=== PATIENT | female | born 1975 | race Caucasian/White ===

== ENCOUNTER → 2018-06-19 13:24 | Outpatient (CLI) | payer MEDICAID, SELFPAY ==
--- NOTE | 2018-06-19 13:27 | RAD_ITS ---
STUDY: X-RAY - LEFT SHOULDER REASON FOR EXAM: Female, 42 years old. Pain after playing basketball TECHNIQUE: 4 view(s) of the shoulder. COMPARISON: None. FINDINGS: Normal glenohumeral articulation. Normal acromioclavicular joint. Normal acromion. Normal humeral head and visualized proximal humerus. The soft tissue structures are unremarkable. Normal visualized pulmonary apex. RAD/Shoulder min 2 Views IMPRESSION: Normal x-ray examination of the shoulder. Electronically Signed: Karl Noonan MD at 13:43 EDT , Service support ,
== END ==
PROVIDERS: Visit Provider Physician Assistant Medical
DX: M25.519 Pain in unspecified shoulder (principal)
CPT/HCPCS: 73030

== ENCOUNTER 2019-09-21 12:00 | Outpatient (RCR) | payer MEDICAID, SELFPAY ==
[2019-07-28 09:59] VITALS: BMI 37.5
--- NOTE | 2019-08-27 12:03 | HP.PTEVAL_ITS ---
Patient's Visit Information JOVANA HOBSON is a 43 year old F referred to Physical Therapy by Carleen Matthew DC with a diagnosis of LUMBAR SEGMENTAL/SOMATIC DYSFUNCTION. Date of Evaluation: 08/27/19 Physical Therapist: Neelam Llanos PT, Cert MDT - Visit Plan Frequency: 2-3x /Week Duration: 4-6 Weeks Plan: AQUATIC THERAPY FOR POSTURE CORRECTION/STRENGTHENING, INSTRUCTION IN APPROPRIATE BODY MECHANICS AND ACTIVITY MODIFICATIONS. DLS STARTING WITH A VALENTIN TRAL SPINE PROGRESSING ROM TOLERATED. JEANNINE LE ROM, STRETCHING AND STRENGTHENING. HEP INSTRUCTION. 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 Disability: NO. Present symptoms: JEANNINE LOW BACK PAIN, HIP PAIN AND JEANNINE BUTTOCK PAIN. INTERMITTENT JEANNINE LE PAIN AND NUMBESS IN THIGHS AND LEGS. DOES NOT GO TO ANKLES, FEET OR TOES. Present since: FEBRUARY 2019. Pain Scale: WORST 9/10, LEAST 0/10. Currently: /10. IMPROVING WITH CHIROPRACTOR. Commenced as a result of: NO APPARENT REASON. Symptoms at onset: LOW BACK. Worse: RUNNING, TRYING TO PLAY SOFTBALL, LIFTING, BENDING OVER, PROLONGED SITTING, LONG WALKS. Better: CHIROPRACTOR, REST, FREQUENT CHANGE OF POSITION. Disturbed sleep: YES. Previous history/Previous treatment: ABOUT 20 CHIROPRACTIC VISITS THIS EPISODE. HAS SEEN A CHIROPRACTOR OFF AND ON FOR ABOUT 20 YEARS - SOMETIMES FOR NECK AND SOMETIMES FOR LOW BACK. NO BACK SURGERY. NO LUMBAR DEBBY'S. NO PHYSICAL THERAPY. Coughing/sneezing/straining: NO. Gait: ONLY HURTS IF SHE WALKS A LONG WAY. Difficulty initiating urinatin: NO. Accidents: NO. Unexplained weight loss: NO. Imaging: LUMBAR X-RAYS SHOWING SOME THINING OF THE DISCS OR BONES. NO MRI. PMH: UNREMARKABLE. Recent major surgery: NO. PLOF (Prior Level of Function) - UNLIMITED. - Objective Sitting/Standing Posture: POOR. Lordosis: NORMAL. Lateral shift: NO. Relevant shift: N/A. Active Correction of posture: NE. Other Observations: INDEP GAIT INTO PT WITH NO GROSS DEVIATIONS NOTED. Motor deficit: JEANNINE LE'S 5/5 WITH MMT'ING. Sensory deficit: NO. ROM deficit: NO. Reflexes: 1/2 JEANNINE LE'S. Dural Signs: NEGATIVE JEANNINE LE'S. Lumbar mvmt loss: flex - NIL. ext - MOD TO EMMANUEL. R SG - MIN. L SG - MIN. PATIENT C/O INCREASED LOW BACK PAIN WITH LUMBAR ROM TESTING ALL PLANES BUT ESPECIALLY WITH EXTENSION TESTING. NO LE SX'S REPORTED WITH TESTING. Core strength: POOR. Palpation: NO ACUTE TENDERNESS WITH PALPATION OF THE THORACIC, LUMBAR, SACRAL OR HIP REGIONS. - Goals Goal 1:: DECREASE C/O LOW BACK AND JEANNINE LE SX'S. Goal Time Frame: 4-6 Weeks Goal 2:: IMPROVE PERSONAL CARE, LIFTING, SITTING, SLEEP, SOCIAL LIFE AND HOMEMAKING FUNCTION Goal Time Frame: 4-6 Weeks Goal 3:: INSTRUCT IN PROPHYLAXIS - Rehabilitation Potential Rehabilitation Potential: Fair - Anticipated Interventions Patient/Client Instruction: Educate patient on: Condition, Plan of Care, Risk Factors, Benefits of Fitness Program For the Purpose of:: To improve self management Therapeutic Exercise to Include: Strength training, Body mechanics, Postural training, Flexibilty training, In an aquatic setting, Dynamic Lumbar Stabilization, Scapular Strength/Stabilization For the Purpose of:: To decrease pain, To improve muscle performance and motor function, To increase tolerance to activity/condition/position, To improve ability of physical actions for home/community/work/leisure Thank you for the opportunity to evaluate your patient. For Medicare and Medicare HMO plans, please review the plan of care and approve it. It will need to be FAXED BACK to us at [phone] for Medicare purposes. For Medicare only, by signing this I certify the plan of care. Please let me know if there are questions or concerns regarding this plan of care. Physician Signature: Date:
--- NOTE | 2019-09-21 12:30 | HP.PTDCSUM ---
HP - PT D/C Summary It has been my pleasure to treat JOVANA HOBSON under orders from Carleen Matthew DC, for the diagnosis of LUMBAR SEGMENTAL/SOMATIC DYSFUNCTION for a total of 9 visit(s). Discharge Date: 09/21/19 Please see the following information for a summary of their discharge status. - Subjective Subjective: PATIENT REPORTS THE PAIN SHE WAS HAVING IN HER BACK IS GONE. SHE REPORTS SHE IS NOW SLEEPING GOOD. BACK PAIN IS NO LONGER LIMITING HER STANDING, WALKING AND SITTING. HAS NOT TRIED HEAVY LIFTING. PATIENT REPORTS WATER THERAPY WAS REALLY GOOD AND HELPFUL. DOING HEP. PATIENT REPORTS IT IS A LOT OF TIME AND GAS FOR HER TO COME TO PT AND SHE WANTS TO STOP AT THIS TIME. - Pain Lumbar Spine Pain Intensity (Out of 10): 0 LE's Pain Intensity (Out of 10): 0 L hip Pain Intensity (Out of 10): 0 - Overall Improvement % Improvement: 100 - Objective Objective/Function: ALL GOALS MET. Lumbar mvmt loss: flex - NIL. ext - MIN TO MOD. R SG - MIN. L SG - MIN. PATIENT DENIES LBP WITH LUMBAR ROM TESTING ALL PLANES. Core strength: POOR. Palpation: NO ACUTE TENDERNESS WITH PALPATION OF THE THORACIC, LUMBAR, SACRAL OR HIP REGIONS. JEANNINE LE STRENGTH 5/5 WITH MMT'ING. PATIENT ABLE TO DEMO GOOD POSTURE AND BODY MECHANICS AFTER INSTRUCTION GIVEN. - Goals Goal 1:: DECREASE C/O LOW BACK AND JEANNINE LE SX'S. Goal 2:: IMPROVE PERSONAL CARE, LIFTING, SITTING, SLEEP, SOCIAL LIFE AND HOMEMAKING FUNCTION Goal 3:: INSTRUCT IN PROPHYLAXIS - Plan Plan: D/C TO HEP - D/C Information If there are questions or concerns regarding this patient's physical therapy, please feel free to call me at [phone]. Thank you for the referral of this patient. Sincerely, Neelam Llanos, PT, Cert MDT
== END 2019-09-21 19:00 | disposition home or self-care (01) ==
LOC: PT 12:00
PROVIDERS: Referring Provider Chiropractor; Visit Provider Chiropractor
DX: M99.03 Segmental and somatic dysfunction of lumbar region (principal)
CPT/HCPCS: 97113; 97161; 97530

== ENCOUNTER 2020-08-03 09:30 | Emergency (ER) | payer OTHER, MEDICAID, SELFPAY ==
[2019-07-28 09:59] VITALS: BMI 37.5
[2020-08-03 09:31] VITALS: BP 142/61; PULSE 78; RESP 16; TEMP 36.4; O2SAT 98; BMI 36.6
--- NOTE | 2020-08-03 09:40 | ED.VIS.GEN ---
History of Present Illness Chief Complaint: Lower Extremity Injury Informant: Patient Onset: Today Context: Sudden Onset Timing: Continuous Current Severity: Moderate Maximum Severity: Moderate Narrative: The patient is an otherwise healthy female who presents to the emergency department with left ankle injury. 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 She states that she was coming down the stairs. She thought she was on the last step, but was not. She went to plant on the ground, and suffered inversion injury to her left ankle. She fell to the ground, but did not strike her head. She states she had immediate pain. She was able to bear some weight, but the pain worsened. She denies other injury. She is not taken anything for her pain. Ice did seem to help. Prior similar symptoms: No Recent Illness/Hospitalization: No Past Medical History - Allergies and Home Meds Allergies/Adverse Reactions: Allergies No Known Allergies Allergy (Verified 08/03/20 09:30) [facility] - Prior records reviewed: Yes Past Medical History: None Surgical History: no surgical history Smoking Status: Never smoker Review of Systems General: Denies: Chills, Fever, Sweats Eyes: Denies: Visual changes - bilaterally, Diplopia ENT: Denies: Rhinorrhea, Sore throat Cardiovascular: Denies: Chest pain, Palpitations Respiratory: Denies: Dyspnea, Cough, Dyspnea on exertion Gastrointestinal: Denies: Abdominal pain, Nausea, Vomiting, Diarrhea, Melena, Hematochezia Genitourinary: Denies: Dysuria, Hematuria, Frequency Musculoskeletal: Denies: Back pain, Extremity Pain Skin: Denies: Rash, Wounds Neurological: Denies: Headache, Weakness, Numbness Physical Exam Vital Signs/Narrative: Vital Signs Temp Pulse Resp BP Pulse Ox 08/03/20 09:31 97.5 F L 78 16 142/61 H 98 Inital Vital Signs reviewed: Yes General: Well nourished, Well developed, No Acute Distress Head: Normocephalic, Atraumatic Eyes: Perrl, EOMI ENT: Moist mucous membranes, No rhinorrhea Neck: Supple, Nontender Cardiovascular: Regular rate, Regular rhythm, No murmurs Respiratory: No distress, CTA bilaterally, Chest nontender Abdomen: Soft, Nontender, Nondistended, Normal bowel sounds Back: Nontender, Normal Inspection Extremities: No edema, Tenderness - Tender over left lateral malleolus. Normal pulses. Achilles intact. No pain at the proximal fibula. Skin: Normal color, No rash Neurological: Alert, Oriented x3, Cranial nerves II-XII grossly intact, Normal Strength, Normal Sensation Psychological: Normal affect, Normal Mood Diagnostic/Tx/Re-eval Clinical Impression(s) from Imaging Studies Ankle X-Ray 08/03/20 09:48 IMPRESSION: Lateral soft tissue swelling. Small plantar spur. Electronically Signed: Jaime Miguel Angel, at 10:14 EDT , Service support , Foot X-Ray 08/03/20 09:48 IMPRESSION: Small plantar spur. Electronically Signed: Jaime Michelle, at 10:15 EDT , Service support , - Medical Decision Making Patient presents with left ankle injury after fall. She did not strike her head or lose consciousness. Plain films are obtained. There is no evidence of acute fracture. I do feel that her symptoms are likely secondary to lateral ligamentous sprain. Patient be placed in a boot orthosis and given crutches and analgesics. She will follow-up with [facility] for reevaluation. Impression 1. Left ankle sprain ED Disposition - Plan for ED Patient: Instructions: ED Sprain Ankle W X Ray Prescriptions: Hydrocodone Bitart/Apap 5-325 [[place] 5MG-325MG] 1 tab PO Q6H PRN PRN 3 Days #10 tab PRN Reason: Pain Prescription Printed [facility] [GROUP OF PHYSICIANS] -
--- NOTE | 2020-08-03 09:48 | RAD_ITS ---
STUDY: X-RAY - LEFT FOOT CLINICAL: Female, 44 years old. FELL ON LAST STEP WALKING DOWN STEPS, FELT A SNAP IN LEFT ANKLE. STS TECHNIQUE: 3 view(s) of the foot. COMPARISON: None. FINDINGS: There is a plantar calcaneal spur. Normal visualized subtalar, talonavicular, calcaneocuboid, tarsal and tarsometatarsal articulations. Normal metatarsi. Normal metatarsophalangeal joint of the great toe. Normal tibial and fibular sesamoid bones. Normal interphalangeal joint of the great toe. Normal phalanges of the great toe. Normal second through fifth metatarsophalangeal joints. Normal interphalangeal joints and phalanges of the lesser toes. The soft tissue structures are unremarkable. RAD/Foot min 3 Views IMPRESSION: Small plantar spur. Electronically Signed: Jaime Michelle, at 10:15 EDT , Service support ,
--- NOTE | 2020-08-03 09:48 | RAD_ITS ---
STUDY: X-RAY - LEFT ANKLE REASON FOR EXAM: Female, 44 years old. FELL ON LAST STEP WALKING DOWN STEPS, FELT A SNAP IN LEFT ANKLE. STS TECHNIQUE: 3 view(s) of the ankle. COMPARISON: None. FINDINGS: Normal visualized distal tibia and fibula. Normal medial and lateral malleoli. Normal tibiotalar articulation and ankle mortise. Small plantar spur. The visualized subtalar, talonavicular, calcaneocuboid and tarsal articulations are normal. Lateral soft tissue swelling. RAD/Ankle min 3 Views IMPRESSION: Lateral soft tissue swelling. Small plantar spur. Electronically Signed: Jaime Michelle, at 10:14 EDT , Service support ,
[2020-08-03 11:15] VITALS: RESP 16
== END 2020-08-03 11:15 | disposition home or self-care (01) ==
PROVIDERS: Emergency Provider Emergency Medicine
DX: S93.402A Sprain of unspecified ligament of left ankle, initial encounter (principal); W10.9XXA Fall (on) (from) unspecified stairs and steps, initial encounter
CPT/HCPCS: 73610; 73630; 99284

== ENCOUNTER 2020-09-08 16:30 | Outpatient (RCR) | payer OTHER, MEDICAID, SELFPAY ==
[2020-08-08 09:41] VITALS: BMI 36.6
--- NOTE | 2020-08-12 10:57 | HP.PTEVAL_ITS ---
Patient's Visit Information OJVANA HOBSON is a 44 year old F referred to Physical Therapy by AL Aldana with a diagnosis of Left Ankle Sprain. Date of Evaluation: 08/12/20 Physical Therapist: Svetlana Bone DPT - Visit Plan Frequency: 3x /Week Duration: 4 Weeks Plan: Focus on LE strength, proprioception and functional mobility- Modality of Vaso and E-stim - Subjective Coming down the stairs at work and missed the bottom step and fell- went to ER- had x-rays which were negative- referred to [facility]- she saw them on Saturday- he took her off crutches and told her to stay in the boot. Patient reports that its improving. Worst: 5/10 Agg: being on in it for a period of time. Best: 0/10 Eases: sitting down and wearing the boot. Is wearing the boot for the most part- is taking it off a little bit at home. Pain is located along the achilles, malleolus and into the marcum. No radiating pain- no N/T. Describes the pain as sharp and shooting as well as throbbing. Sleep: disturbed- is not wearing boot at night- it helps when she props her foot up instead of letting it fall into PF- changes positions. 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 Plans to go back on Saturday for a few hours. PMhx/Meds: no changes since at [facility] - Objective Posture: FH, RS- increased kyphosis- can correct but does not maintain. Gait: CAM walker- decreased stance on the left LE. SLS: weight shift but unable to SLS. HR/TR: able with weight shifted onto the right. Girth: Figure 8: 51 cm, Mets: 24.5 cm Malls: 22 1/2 cm. ROM: DF: neutral, PF: 30 degrees, Inver: 40 degrees Ever: 10 degrees Knee: 0-130 degrees. Strength: Isometric ankle: 4/5 with discomfort. Observation: significant bruising from the malls to the toes. Flex: HS: moderate, Gastroc: severe Soleus: moderate. Palpation: tender along malleolus, mortise and into the achilles- no pain with AP/PA glides in the mid foot to forefoot - Goals Goal 1:: Patient will be I with HEP and progression Goal Time Frame: 4-6 Weeks Goal 2:: Patient will ambualte >300 feet with a normalized gait pattern Goal Time Frame: 4-6 Weeks Goal 3:: Patient will SLS for 30 sec without LOB Goal Time Frame: 4-6 Weeks Goal 4:: Patient will return to work with no pain Goal Time Frame: 4-6 Weeks - Rehabilitation Potential Physical Therapy Diagnosis: Patient presents with hypomobiliy- she has decreased ROM,strenth, flexibility and muscular endurance- she has increased edema leading to abnormal gait and increased pain with ADL's. Rehabilitation Potential: Good - Anticipated Interventions Patient/Client Instruction: Educate patient on: Benefits of Fitness Program Therapeutic Exercise to Include: Strength training, Endurance training, Balance training, Agility training, Body mechanics, Postural training, Flexibilty training, Gait and locomotor training, Neuromotor development, Passive ROM, Active ROM, Dynamic Lumbar Stabilization, Scapular Strength/Stabilization For the Purpose of:: To improve muscle performance and motor function TENS: Yes Cryotherapy (ice pack, ice massage): Yes Thermo therapy (hot pack): Yes Ultrasound (thermal/non thermal): Yes Vasopneumatic device: Yes For the Purpose of:: To increase oxygenation perfusion Thank you for the opportunity to evaluate your patient. For Medicare and Medicare HMO plans, please review the plan of care and approve it. It will need to be FAXED BACK to us at [phone] for Medicare purposes. For Medicare only, by signing this I certify the plan of care. Please let me know if there are questions or concerns regarding this plan of care. Physician Signature: Date:
--- NOTE | 2020-09-08 16:53 | HP.PTDCSUM ---
It has been my pleasure to treat JOVANA HOBSON referred by AL Aldana, with the diagnosis of Left Ankle Sprain for a total of 5 visit(s). Discharge Date: Please see the following information for a summary of their discharge status. Subjective: Patient reports that the ankle is better- going down the stairs she has a little bit of problem bending. There is nothing that she can't do- does have a little bit of pain when she is on it for long periods of time or when she is walking long distances. No problems getting back to work and she just takes her time with the stairs. left ankle Pain Intensity (Out of 10): 0 % Improvement: 70 Objective/Function: Posture: good throughout Gait: no deviation noted- tennis shoes SLS: 10 sec then LOB HR/TR: WNL. ROM: DF: 15 degrees, PF: 70 degrees, Inver: 40 degrees Ever: 10 degrees Knee: 0-130 degrees. Strength: Isometric ankle: 5/5 Observation: significant bruising from the malls to the toes. Flex: HS: moderate, Gastroc: mod Soleus: moderate. Palpation: tender along malleolus, mortise and into the achilles- no pain with AP/PA glides in the mid foot to forefoot Goal 1:: Patient will be I with HEP and progression Goal Progress: Goal Met Goal 2:: Patient will ambualte >300 feet with a normalized gait pattern Goal Progress: Goal Met Goal 3:: Patient will SLS for 30 sec without LOB Goal 4:: Patient will return to work with no pain Goal Progress: Progressing Plan: Dischage to [facility] If there are questions or concerns regarding this patient's physical therapy, please feel free to call me at [phone]. Thank you for the referral of this patient. Sincerely, Svetlana Bone DPT
== END 2020-09-08 19:00 | disposition home or self-care (01) ==
LOC: PT 16:30
PROVIDERS: Referring Provider Physician Assistant; Visit Provider Physician Assistant
DX: S93.402D Sprain of unspecified ligament of left ankle, subsequent encounter (principal)
CPT/HCPCS: 97014; 97016; 97110; 97161; 97164; G0283

== ENCOUNTER → 2021-01-14 07:52 | Outpatient (CLI) | payer OTHER, SELFPAY ==
[2020-12-22 16:44] VITALS: BMI 37.5
--- NOTE | 2021-01-14 08:18 | MRI_ITS ---
STUDY: MRI LEFT ANKLE WITHOUT CONTRAST REASON FOR EXAM: Left ankle pain after left ankle sprain 08/03/2020. TECHNIQUE: Standardized fat and water weighted pulse sequences were obtained in all 3 orthogonal planes. COMPARISON: Radiographs 08/03/2020. FINDINGS: Normal subcutis adipose space. There is a very small volume of fluid in the retromalleolar and distal posterior tibialis tendon sheath (T2 axial images 16, 17, 24, 25). The posterior tibialis tendon is morphologically normal. Normal flexor digitorum longus tendon. There is a small volume of fluid in the flexor hallucis longus tendon sheath proximal and distal to the sustentaculum jagdeep (inversion recovery sagittal images 8-10). Normal peroneus longus and brevis tendons. Normal tibialis anterior tendon. Normal extensor hallucis longus tendon. Normal extensor digitorum longus tendons. Normal Achilles tendon and teno-osseous insertion. Normal plantar fascia. Normal plantar calcaneal tubercles. Normal intrinsic muscles of the rearfoot. Normal distal tibiofibular syndesmotic ligamentous complex. There is thickening of the anterior talofibular ligament (T2 axial images 21, 22) consistent with scarring. Normal calcaneofibular and posterior talofibular ligaments. Normal subtalar ligaments and sinus tarsi. Normal deltoid ligamentous complexes. Normal plantar calcaneonavicular (spring) ligament. There is an osteochondral lesion of the superior talar dome at the midline (T1 sagittal image 10) measuring 0.7 cm in AP and transverse dimensions with bone edema/cystic change of the fragment and parent bone (inversion recovery sagittal images 10, 11). There is an osteochondral lesion of the posterior medial talar dome (T1 sagittal image 8) measuring 0.5 x 0.35 cm (AP x transverse) with cystic change of the fragment (inversion recovery sagittal image 8). Normal subtalar articulations. There is a small talonavicular joint effusion (inversion recovery sagittal images 9-11). There is a small calcaneocuboid joint effusion (T2 axial image 29). Normal navicular-cuneiform articulations. MRI/Lower Ext Joint Only (Routine) IMPRESSION: Thickening of the anterior talofibular ligament consistent with scarring. Osteochondral lesions of the talar dome. Very mild posterior tibialis tenosynovitis. Fluid in the flexor hallucis longus tendon sheath. Small talonavicular and calcaneocuboid joint effusions. Electronically Signed: Fuentes Haile MD at 10:38 EST Tel , Service support ,
== END ==
PROVIDERS: Referring Provider Podiatrist; Visit Provider Podiatrist
DX: S93.402A Sprain of unspecified ligament of left ankle, initial encounter (principal); M93.872 Other specified osteochondropathies, left ankle and foot; M25.572 Pain in left ankle and joints of left foot
CPT/HCPCS: 73721

== ENCOUNTER → 2021-10-03 13:55 | Outpatient (CLI) | payer MEDICAID, SELFPAY ==
[2021-10-03 15:04] LABS: Absolute Lymphocyte Count 1.47 X10^3/uL (0.83-4.51); Absolute Neutrophil Count 3.8 X10^3/uL (2.0-7.7); Basophil# 0.01 X10^3/uL; Basophil% 0.2 % (0-1); Eosinophils% 1.7 % (0-5); Hematocrit 39.6 % (37-47); Lymphocyte # 1.47 X10^3/ul (0.83-4.51); Mean Corp Hgb Conc 35.4 g/dL (32-36); Mean Corpuscular Hgb 30.2 pg (27.0-32.0); Mean Corpuscular Volume 85.5 fL (81-99); Mean Platelet Vol. 10.2 fl (6.2-12.0); Monocyte# 0.48 X10^3/uL; Monocyte% 8.2 % (0-10); NRBC Flagged by Analyzer 0 % (0-5); Neutrophil # 3.79 X10^3/uL (2.7-7.7); Neutrophil % 64.6 % (47-70); Platelet Count 201 K/mm3 (150-450); RBC Distribution Width CV 11.7 % (11.6-14.6); RBC Distribution Width SD 35.9 fl (35.1-43.9); Red Blood Count 4.63 M/mm3 (4.2-5.4); White Blood Count 5.9 K/mm3 (4.4-11.0)
[2021-10-03 15:37] LABS: ALB/GLOB Ratio 1.1 RATIO (0.9-2.4); AST(SGOT) 13 U/L (15-37); Alanine Aminotransfer ALT/SGPT 16 U/L (13-56); Albumin, Serum 3.9 g/dL (3.2-5.0); Alkaline Phosphatase 88 U/L (45-117); Anion Gap 6 (5-15); BUN 13 mg/dL (7-18); BUN/Creat Ratio 15.2 RATIO (10-20); Calcium,Total 9.4 mg/dL (8.5-10.1); Chloride 103 mmol/L (98-107); Cholesterol 204 mg/dL (200); Creatinine, Serum 0.86 mg/dL (0.55-1.02); EST Glomerular Filtration Rate 76 mL/min (>60); Est Glom Filt Rate - Afr Amer 92 mL/min (>60); Globulin 3.6 g/dL (2.2-4.2); Glucose 92 mg/dL (74-106); High Density Lipoprotein 48 mg/dL; Potassium 3.9 mmol/L (3.5-5.1); Protein, Total 7.5 g/dL (6.4-8.2); Sodium Level 138 mmol/L (136-145); T4 Free Direct 1.02 ng/dL (0.76-1.46); Thyroid Stim Hormone (TSH) 0.63 uIU/mL (0.358-3.74); Triglycerides 90 mg/dL; Very Low Density Lipoprotein 18 mg/dL (5-40)
== END ==
PROVIDERS: Referring Provider Internal Medicine; Visit Provider Internal Medicine
DX: E66.9 Obesity, unspecified (principal); Z13.29 Encounter for screening for other suspected endocrine disorder
CPT/HCPCS: 36415; 80053; 80061; 84439; 84443; 85025

== ENCOUNTER 2022-02-08 15:00 | Outpatient (RCR) | payer OTHER, MEDICAID, SELFPAY ==
--- NOTE | 2022-01-15 08:40 | HP.PTEVAL_ITS ---
Patient's Visit Information JOVANA HOBSON is a 46 year old F referred to Physical Therapy by Dr. Michelle Mathews DPM with a diagnosis of L talus osteochondral defect. Date of Evaluation: 01/15/22 Physical Therapist: Vernon Hwang DPT, OCS, CSCS - Visit Plan Frequency: 3x /Week Duration: 4-6 Weeks Plan: 3x/week for 4-6 weeks for ... 1. STM to L ankle, mobs for DF and ankle pull, DF APROM and post lower leg stretching. 2. ankle strength to HEP. 3. gait training, stair training. 4. TENS with ice as needed. - Subjective Injury 07/2020 and thought it was a bad sprain after falling on last step at work. 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 Waited through 9 months and eventualloy got brace for L ankle. Did not help. Dec 2 was put in cast for two months and now is out and back in brace and having PT. Has had injections a while ago to clarify that pain was on top of ankle. used wheel cart when in cast. Now just brace for last couple weeks. Uses wheely cart a little bit now(2 hrs per day without it). Pain is still not good on top of and lateral ankle when weight bearing. Comfortable at rest for the most part. Pain is mostly lateral and gets to 7/10. Not keeping up at night since was put in cast. 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 Hobbies include playing basketball and softball, shopping...not doing them much lately due to pain. Basic ADLS are getting done slowly, steps are a little painful but can do it. - Pain L lat ankle Pain Intensity (Out of 10): 1 Pain Intensity Range: 0, 7 - Objective I gait with brace, turns well, I trasnfers. Steps reciprocal with one rail, turns to side slightly descending with L and uses rail. Walks brace on and brace off I with good gait pattern today. AROM L ankle 0 Df, 24 inv and 12 eversion and 55 PF, R ankle is 5 Df, 60 PF, 30 inv and 15 eversion. Strength is 4/5 L ankle and 4+ R ankle...knee anad hip strength and ROM symmetrical and WFL 4/5. reflexes 2/3 patella and aachilles B. Sensation WNL LE to gross light touch. No tenderness in L ankle palkpable. Heel and toe walk easily without pain right now. - talar tilt. - Balance/Special Test Scores Functional Gait Assessment Score: 29 % Disability: 3.3400 Lower Extremity Functional Score: 50 - Goals Goal 1:: Full AROM L ankle without pain Goal Time Frame: 4-6 Weeks Goal 2:: patient feel WB pain 75% better to 1/10 at worst Goal Time Frame: 4-6 Weeks Goal 3:: Descend steps reciprocal without rail without turning to side Goal Time Frame: 4-6 Weeks Goal 4:: LEFS 62/80 Goal Time Frame: 4-6 Weeks - Rehabilitation Potential Physical Therapy Diagnosis: L talus osteo chondral defect and resulting pain and loss of motion Rehabilitation Potential: Fair - Anticipated Interventions Patient/Client Instruction: Educate patient on: Condition, Plan of Care For the Purpose of:: To decrease pain, To increase ROM, To improve muscle performance and motor function, To increase tolerance to activity/condition/position, To improve ability of physical actions for home/community/work/leisure Therapeutic Exercise to Include: Strength training, Postural training, Flexibilty training, Gait and locomotor training, Passive ROM, Active ROM For the Purpose of:: To decrease pain, To decrease swelling/inflammation, To increase ROM Manual Therapy Techniques to Include: Mobilization, Passive ROM, Soft tissue mobilization For the Purpose of:: To increase ROM, To improve nutrient delivery to tissue, To improve muscle performance and motor function, To increase tolerance to activity/condition/position TENS: Yes Cryotherapy (ice pack, ice massage): Yes For the Purpose of:: To decrease pain Thank you for the opportunity to evaluate your patient. For Medicare and Medicare HMO plans, please review the plan of care and approve it. It will need to be FAXED BACK to us at [phone] for Medicare purposes. For Medicare only, by signing this I certify the plan of care. Please let me know if there are questions or concerns regarding this plan of care. Physician Signature: Date:
--- NOTE | 2022-02-08 15:26 | HP.PTDCSUM ---
It has been my pleasure to treat JOVANA HOBSON referred by Dr. Michelle Mathews DPM, with the diagnosis of L talus osteochondral defect for a total of 11 visit(s). Discharge Date: 02/08/22 Please see the following information for a summary of their discharge status. Subjective: 2-3 today, not bad, a normal day. Pain up to 08/04. 05/04 yesterday with laundry and dishes. Sleeping is OK. Activities are still interrupted as she cannot play sports with her kids without paying for it. Enduring longer before painful compared to before therapy. Also descending steps better. To doctor on 02/19. Pt frustrated with slow progress and up and down nature of pain based on her weight bearing. L lat ankle Pain Intensity (Out of 10): 2 % Improvement: 50 Objective/Function: 4+/5 ankle strength L, Full aROM without pain today. Walking with slight antalgia intermittently based on previous WB. steps are reciprocal and no need to turn sideways anymore. Overall improved but frstratingly up and down. Goal 1:: Full AROM L ankle without pain Goal Progress: Goal Met Goal 2:: patient feel WB pain 75% better to 1/10 at worst Goal Progress: up and down. Goal 3:: Descend steps reciprocal without rail without turning to side Goal Progress: Goal Met Goal 4:: LEFS 62/80 Goal Progress: Not Progressing Plan: d/c, pt to doctor in a weeka nd a half. Will continue ex strength, proprioception adn ROM until then. Discharge Comments: Pt to doctor in a week or so and is frustrated with continued weight bearaing pain effecting function with her children. 50% better but still frstrated. If there are questions or concerns regarding this patient's physical therapy, please feel free to call me at [phone]. Thank you for the referral of this patient. Sincerely, Vernon Hwang, DPT, OCS, CSCS Balance/Gait/Functional tests - Balance/Special Test Scores Functional Gait Assessment Score: 29 % Disability: 3.3400 Lower Extremity Functional Score: 51
== END 2022-02-08 19:00 | disposition home or self-care (01) ==
LOC: PT 15:00
PROVIDERS: PCP Internal Medicine; Referring Provider Podiatrist; Visit Provider Podiatrist
DX: M95.8 Other specified acquired deformities of musculoskeletal system (principal)
CPT/HCPCS: 97110; 97140; 97161; 97164

== ENCOUNTER → 2023-08-08 | Outpatient (CLI) | payer OTHER, MEDICAID, SELFPAY ==
[2023-08-08 16:36] LABS: Absolute Lymphocyte Count 1.26 X10^3/uL (0.83-4.51); Absolute Neutrophil Count 3.6 X10^3/uL (2.0-7.7); Basophil# 0.01 X10^3/uL; Basophil% 0.2 % (0-1); Eosinophil# 0.09 X10^3/uL; Eosinophils% 1.7 % (0-5); Hematocrit 39.2 % (37-47); Hemoglobin 13.6 g/dL (12.0-15.0); Lymphocyte # 1.26 X10^3/ul (0.83-4.51); Lymphocyte % 23.4 % (19-41); Mean Corp Hgb Conc 34.7 g/dL (32-36); Mean Corpuscular Hgb 30.2 pg (27.0-32.0); Mean Corpuscular Volume 87.1 fL (81-99); Mean Platelet Vol. 9.9 fl (6.2-12.0); Monocyte# 0.43 X10^3/uL; NRBC Flagged by Analyzer 0 % (0-5); Neutrophil # 3.57 X10^3/uL (2.7-7.7); Neutrophil % 66.3 % (47-70); Platelet Count 189 K/mm3 (150-450); RBC Distribution Width CV 11.4 % (11.6-14.6); RBC Distribution Width SD 36.1 fl (35.1-43.9); White Blood Count 5.4 K/mm3 (4.4-11.0)
[2023-08-08 17:22] LABS: ALB/GLOB Ratio 1.2 RATIO (0.9-2.4); AST(SGOT) 16 U/L (15-37); Alanine Aminotransfer ALT/SGPT 18 U/L (13-56); Albumin, Serum 3.8 g/dL (3.2-5.0); Alkaline Phosphatase 77 U/L (45-117); Anion Gap 4 (5-15); BUN 20 mg/dL (7-18); BUN/Creat Ratio 24.9 RATIO (10-20); Calcium,Total 9.1 mg/dL (8.5-10.1); Chloride 105 mmol/L (98-107); Cholesterol 191 mg/dL (200); EST Glomerular Filtration Rate 81 mL/min (>60); Est Glom Filt Rate - Afr Amer 99 mL/min (>60); Globulin 3.2 g/dL (2.2-4.2); Glucose 94 mg/dL (74-106); High Density Lipoprotein 58 mg/dL; Potassium 3.6 mmol/L (3.5-5.1); Sodium Level 137 mmol/L (136-145); Triglycerides 85 mg/dL; Very Low Density Lipoprotein 17 mg/dL (5-40)
== END | disposition home or self-care (01) ==
LOC: BIMLAB 15:54
PROVIDERS: PCP Internal Medicine; Referring Provider Internal Medicine; Visit Provider Internal Medicine
DX: Z00.00 Encounter for general adult medical examination without abnormal findings (principal)
CPT/HCPCS: 36415; 80053; 80061; 85025

== ENCOUNTER → 2023-09-21 | Outpatient (CLI) | payer OTHER, SELFPAY ==
--- NOTE | 2023-09-21 07:35 | MRI_ITS ---
INDICATION: LEFT ANKLE SPRAIN EXAMINATION: MRI - LEFT MR Ankle W/O Contrast TECHNIQUE: Multiplanar and multisequence MR images of the ankle. IV Contrast Dosage and Agent: None. COMPARISON: FINDINGS: BONE: Osteochondritis desiccated and of the superior medial talar dome 0.55 cm transverse. No fracture or marrow edema. No osteochondral lesion. JOINT: Articular cartilage intact. No joint effusion. LIGAMENTS: The syndesmotic ligaments, lateral collateral ligaments, and medial collateral ligaments are intact. TENDONS: Moderate tendinopathy of the distal tibialis posterior. Distal flexor digitorum and flexor hallucis tendons are intact. Achilles tendon is intact. There is mild retrocalcaneal bursitis. MUSCLES: Normal bulk and signal. MISCELLANEOUS: Moderate partial tear of the proximal plantar fascia with underlying thickening and plantar fasciitis. Normal fat in the sinus tarsi. OTHER SOFT TISSUES: Unremarkable. MRI/Lower Ext Joint Only (Routine) IMPRESSION: Osteochondritis dissecans superior medial talar dome. Retrocalcaneal bursitis. Tendinopathy distal tibialis posterior. Moderate partial tear proximal plantar fasciitis with underlying proximal plantar fasciitis. Electronically Signed: Chema Romero MD at 16:30 EDT ,
== END | disposition home or self-care (01) ==
LOC: MRI 07:31
PROVIDERS: PCP Internal Medicine; Referring Provider Podiatrist Foot & Ankle Surgery; Visit Provider Podiatrist Foot & Ankle Surgery
DX: S93.402A Sprain of unspecified ligament of left ankle, initial encounter (principal); M21.6X2 Other acquired deformities of left foot
CPT/HCPCS: 73721

== ENCOUNTER → 2024-08-12 | Outpatient (CLI) | payer OTHER, SELFPAY ==
[2024-08-12 15:04] LABS: Absolute Lymphocyte Count 1.27 X10^3/uL (0.83-4.51); Absolute Neutrophil Count 4.9 X10^3/uL (2.0-7.7); Eosinophil# 0.12 X10^3/uL; Eosinophils% 1.8 % (0-5); Hematocrit 38.5 % (37-47); Hemoglobin 13.3 g/dL (12.0-15.0); Lymphocyte # 1.27 X10^3/ul (0.83-4.51); Lymphocyte % 18.6 % (19-41); Mean Corp Hgb Conc 34.5 g/dL (32-36); Mean Corpuscular Hgb 29.8 pg (27.0-32.0); Mean Corpuscular Volume 86.3 fL (81-99); Mean Platelet Vol. 10.2 fl (6.2-12.0); Monocyte% 7.3 % (0-10); NRBC Flagged by Analyzer 0 % (0-5); Neutrophil % 71.9 % (47-70); Platelet Count 186 K/mm3 (150-450); RBC Distribution Width CV 11.7 % (11.6-14.6); RBC Distribution Width SD 36.3 fl (35.1-43.9); Red Blood Count 4.46 M/mm3 (4.2-5.4); White Blood Count 6.8 K/mm3 (4.4-11.0)
[2024-08-12 15:35] LABS: ALB/GLOB Ratio 1.1 RATIO (0.9-2.4); AST(SGOT) 17 U/L (15-37); Alanine Aminotransfer ALT/SGPT 22 U/L (13-56); Albumin, Serum 3.8 g/dL (3.2-5.0); Alkaline Phosphatase 72 U/L (45-117); Anion Gap 7 (5-15); BUN 16 mg/dL (7-18); Calcium,Total 9.7 mg/dL (8.5-10.1); Chloride 103 mmol/L (98-107); Cholesterol 214 mg/dL (200); Creatinine, Serum 0.76 mg/dL (0.55-1.02); EST Glomerular Filtration Rate 86 mL/min (>60); Est Glom Filt Rate - Afr Amer 104 mL/min (>60); Globulin 3.4 g/dL (2.2-4.2); Glucose 95 mg/dL (74-106); High Density Lipoprotein 74 mg/dL; Potassium 3.9 mmol/L (3.5-5.1); Protein, Total 7.2 g/dL (6.4-8.2); Sodium Level 137 mmol/L (136-145); Triglycerides 48 mg/dL; Very Low Density Lipoprotein 10 mg/dL (5-40)
== END | disposition home or self-care (01) ==
LOC: BIMLAB 11:55
PROVIDERS: PCP Internal Medicine; Referring Provider Internal Medicine; Visit Provider Internal Medicine
DX: Z00.00 Encounter for general adult medical examination without abnormal findings (principal)
CPT/HCPCS: 36415; 80053; 80061; 85025